=== PATIENT | male | born 1950 | race Caucasian/White ===

== ENCOUNTER 2018-10-27 10:48 | Outpatient (CLI) | payer OTHER ==
[~2018-10-27 10:48] MED LIST: NABUMETONE500 MG PO; PERCOCET 5/3251 TAB PO
== END 2018-10-27 10:55 | disposition home or self-care (01) ==
LOC: RAD 10:48
DX: M25.512 Pain in left shoulder (principal)

== ENCOUNTER 2019-06-22 10:55 | Outpatient (CLI) | payer OTHER | END 2019-06-22 10:59 | disposition home or self-care (01) | LOC: RAD 10:55 | DX: M54.2 Cervicalgia (principal); M54.5 Low back pain ==

== ENCOUNTER 2020-10-18 08:41 | Outpatient (CLI) | payer OTHER | END 2020-10-18 08:59 | disposition home or self-care (01) | LOC: MRI 08:41 | PROVIDERS: ATTEND Psychiatry & Neurology Neurology | DX: G31.1 Senile degeneration of brain, not elsewhere classified (principal); I67.82 Cerebral ischemia | CPT/HCPCS: 70551 ==

== ENCOUNTER 2022-04-21 10:54 | Outpatient (CLI) | payer OTHER | END 2022-04-21 11:04 | disposition home or self-care (01) | LOC: RAD 10:54 | PROVIDERS: ATTEND Orthopaedic Surgery | DX: M25.561 Pain in right knee (principal); M25.562 Pain in left knee ==

== ENCOUNTER 2022-05-01 08:48 | Outpatient (CLI) | payer OTHER | END 2022-05-01 08:57 | disposition home or self-care (01) | LOC: MRI 08:48 | PROVIDERS: ATTEND Orthopaedic Surgery | DX: S83.201A Bucket-handle tear of unspecified meniscus, current injury, left knee, initial encounter (principal); M25.552 Pain in left hip | CPT/HCPCS: 72195; 73721 ==

== ENCOUNTER 2024-05-10 12:00 | Emergency (ER) | payer OTHER ==
[~2024-05-10] VITALS: Ht 162.6 cm; Wt 68.0 kg
[2024-05-10] MEDS ORDERED: METFORMIN HCL500 MG (13:15)
[2024-05-10] MEDS ORDERED: LOSARTAN POTASS50 MG PO (13:15)
[2024-05-10] MEDS ORDERED: TRAZODONE HCL150 MG (13:16)
[2024-05-10] MEDS ORDERED: MEMANTINE HCL5 MG PO (13:16)
[2024-05-10 13:17] VITALS: BP 106/50; O2SAT 100
[2024-05-10] MEDS ORDERED: PEPCID AC20 MG (13:19)
[2024-05-10 15:14] LABS: CALCIUM 9.1 mg/dL (8.5-10.1); CREATININE SERUM 0.94 mg/dL (0.70-1.30); GFR 78.23; POTASSIUM 4.08 mEq/L (3.5-5.1)
[2024-05-10 15:18] LABS: PH,URINE 5.5 (5.0-8.0); URINE APPEARANCE Clear; URINE BILIRRUBIN Negative (NEGATIVE); URINE BLOOD Negative; URINE COLOR Yellow; URINE GLUCOSE Negative (NEGATIVE); URINE KETONE Negative (NEGATIVE); URINE LEUKOCYTE Negative; URINE NITRATE Negative; URINE PROTEIN Negative (NEGATIVE); URINE UROBILINOGEN 0.2 E.U./dl
[2024-05-10 15:23] LABS: URINE BACTERIA 2.4 uL (0.0-1933); URINE EPITHELIAL CELLS 0.9 uL (0.0-38.8); URINE RBC 0.7 uL (0.0-20.8); URINE WBC 1.2 uL (0.0-23.2)
[2024-05-10 16:03] LABS: HEMATOCRIT 42.6 % (39.0-48.0); HEMOGLOBIN 14.1 g/dL (13-16.00); MEAN CELL VOLUME 94.9 fL (80.0-100.00); MEAN CORPUSCULAR HEMOGLOBIN 31.3 pg (27.00-32.0); PLATELET COUNT 148 K/uL (150-450); RED BLOOD COUNT 4.49 M/uL (4.00-6.00); RED CELL DISTRIBUTION WIDTH 14.1 % (11.5-14.5)
== END 2024-05-10 18:28 | disposition home or self-care (01) ==
LOC: ER 12:02
PROVIDERS: General Practice
DX: K62.89 Other specified diseases of anus and rectum (principal); I10 Essential (primary) hypertension; E11.9 Type 2 diabetes mellitus without complications; Z79.84 Long term (current) use of oral hypoglycemic drugs